=== PATIENT | male | born 1960 | race Hispanic/Latino ===

== ENCOUNTER → 2024-07-29 | Outpatient (CLI) | payer OTHER | END | disposition home or self-care (01) | LOC: RAH 12:09 | PROVIDERS: ATTEND Internal Medicine Cardiovascular Disease | DX: Z13.6 Encounter for screening for cardiovascular disorders (principal) | CPT/HCPCS: 75571 ==

== ENCOUNTER → 2024-08-26 | Outpatient (CLI) | payer OTHER ==
--- NOTE | 2024-08-27 09:37 | HMCSR ---
APPROVED REPORT Laterality: Bilateral Indications Skin Tanner use of Anticoag, Doppler Spectral Velocity Analysis PSV / EDVPSV / EDV ECA (R) 70 / cm/sECA (L) 75 / cm/s dICA (R) 85 / 36 cm/sdICA (L) 78 / 33 cm/s Berny (R) 61 / 19 cm/smICA (L) 71 / 23 cm/s pICA (R) 80 / 17 cm/spICA (L) 56 / 14 cm/s dCCA (R) 77 / 13 cm/sdCCA (L) 72 / 15 cm/s mCCA (R) 91 / 17 cm/smCCA (L) 87 / 27 cm/s pCCA (R) 78 / 16 cm/spCCA (L) 121 / 29 cm/s Vert (R) 20 / cm/sVert (L) 56 / cm/s Subl. (R) 115 / cm/sSubl. (L) 153 / cm/s ICA/CCA 0.93ICA/CCA 0.64 Technologist Impression Mild plaque noted in the bilateral carotids DREA and LICA appear patent without hemodynamic significance. RT. Vert A. appears small difficult to evaluate Bilateral vertebral arteries appear antegrade. Conclusion Mild plaque noted in the bilateral carotids DREA and LICA appear patent without hemodynamic significance. RT. Vert A. appears small difficult to evaluate Bilateral vertebral arteries appear antegrade. Conclusion Mild plaque noted in the bilateral carotids DREA and LICA appear patent without hemodynamic significance. RT. Vert A. appears small difficult to evaluate Bilateral vertebral arteries appear antegrade.
== END | disposition home or self-care (01) ==
LOC: SHCH 11:01 → EDUNIT# 15:40
PROVIDERS: ATTEND Internal Medicine Cardiovascular Disease
DX: I65.23 Occlusion and stenosis of bilateral carotid arteries (principal); Z79.01 Long term (current) use of anticoagulants
CPT/HCPCS: 93880

== ENCOUNTER 2024-10-10 05:49 | Day surgery (SDC) | payer OTHER ==
[2024-10-08 11:19] VITALS: BP 124/73; PULSE 94; RESP 18; TEMP 97.3
[2024-10-08 11:24] LABS: BASOPHILS # (AUTO) 0.03 K/uL (0.00-0.20); BASOPHILS % (AUTO) 0.5 % (0.0-5.0); EOSINOPHILS # (AUTO) 0.14 K/uL (0.00-0.70); EOSINOPHILS % (AUTO) 2.1 % (0.0-8.0); HEMATOCRIT 41.7 % (42-54); IMMATURE GRANULOCYTE ABSOLUTE 0.03 K/uL (0-1); LYMPHOCYTES # (AUTO) 1.7 K/uL (1.0-4.8); LYMPHOCYTES % (AUTO) 25.4 % (21.0-51.0); MEAN CORPUSCULAR HEMOGLOBIN 30.8 pg (27.0-33.0); MEAN CORPUSCULAR HGB CONC 34.3 g/dL (32.0-36.0); MEAN CORPUSCULAR VOLUME 89.7 fL (79-99); MONOCYTES # (AUTO) 0.4 K/uL (0.1-1.0); MONOCYTES % (AUTO) 6.4 % (3.0-13.0); NEUTROPHILS # (AUTO) 4.3 K/uL (1.8-7.7); NEUTROPHILS % (AUTO) 65.1 % (40.0-77.0); PLATELET COUNT (AUTO) 159 K/uL (130-400); RED BLOOD CELL COUNT(AUTO) 4.65 MIL/uL (4.50-6.20); RED CELL DISTRIBUTION WIDTH 12.8 % (11.0-15.5); WHITE BLOOD COUNT (AUTO) 6.5 K/uL (4.8-10.8)
[2024-10-08 11:31] LABS: POTASSIUM 4.2 mmol/L (3.5-5.1)
[2024-10-08 11:33] LABS: APPEARANCE,URINE CLEAR (CLEAR); BILIRUBIN,URINE NEGATIVE (NEGATIVE); COLOR,URINE YELLOW (YELLOW); GLUCOSE, URINE (UA) NEGATIVE (NEGATIVE); KETONES,URINE NEGATIVE (NEGATIVE); LEUKOCYTE ESTERASE ,URINE NEGATIVE Leu/uL (NEGATIVE); NITRATE,URINE NEGATIVE (NEGATIVE); OCCULT BLOOD,URINE NEGATIVE (NEGATIVE); PH,URINE 5.5 (5.0-8.0); PROTEIN,URINE NEGATIVE (NEGATIVE); UROBILINOGEN,URINE 0.2 mg/dL (0.2-1.0)
[2024-10-08 11:36] LABS: ADD UA MICROSCOPIC NO
[2024-10-08 11:45] LABS: INR 1.09 (0.85-1.15); PROTHROMBIN TIME 11.5 SEC (9.6-11.6)
[2024-10-08 11:46] LABS: PARTIAL THROMBOPLASTIN TIME 28.2 SEC (26.3-35.5)
[2024-10-08 11:52] LABS: B-TYPE NATRIURETIC PEPTIDE 62 pg/mL (0-100)
--- NOTE | 2024-10-08 17:17 | HMCIMG ---
CHEST 1VW HISTORY: Preop COMPARISON: None FINDINGS: A frontal projection of the chest was obtained. No acute pulmonary infiltrates is seen. The heart is borderline enlarged. Degenerative changes are seen. Aortic calcifications are seen. IMPRESSION: 1. No acute pulmonary infiltrate is seen.
[~2024-10-10] VITALS: Ht 172.7 cm; Wt 119.6 kg
[2024-10-10] VITALS (36 sets, daily range): BP systolic 105–157; BP diastolic 52–91; PULSE 77–109; RESP 8–18; TEMP 97–206.6
[~2024-10-10 05:49] MED LIST: APIX5TAB PO; ASPI-1443 PO; ATOR40TA69 PO; CHOL200013 PO; FINA5TAB41 PO; LACT1CAP70 PO; MELA10TA3 PO; MVIT PO; SILD25TA PO; TERA5CAP4 PO; TIRZ5VIA SQ; URSO300C4 PO
[2024-10-10] MEDS: LIDOCAINE HCL 2% VISCOUS 15 ML UDCUP ONE (07:45)
--- NOTE | 2024-10-10 07:55 | EKG ---
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
--- NOTE | 2024-10-10 08:50 | EKG ---
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
[2024-10-10] MEDS ORDERED: AMIOdarone 150MG VIAL IV ONE (09:00)
[2024-10-10] MEDS: 0.9%NACL 1000ML 1,000 ML IV SCH (09:16)
[2024-10-10] MEDS: MIDAZOLAM HCL 1 MG/ML 2ML VIAL ONE (09:17)
[2024-10-10] MEDS: proPOFol 10 MG/ML 20ML VIAL IV ONE (09:20)
[2024-10-10] MEDS: FENTanyl CITRate PF 50 MCG/1 ML 2ML VIAL ONE (09:22)
--- NOTE | 2024-10-10 11:46 | HMCSR ---
APPROVED REPORT EXAM: Transesophageal echocardiogram with color flow Doppler. INDICATION ICD: Coronary artery disease, I10 Reason For Test : Rule out Intracardiac Thrombus. PROCEDURE 15 mL 2% Viscous Lidocaine was given as a topical anesthetic prior to the administration of the consc ious sedation. Type of Sedation: Conscious Sedation Sedation was administered by please refer to medication adminsitration record. . Sedation was achieved with please refer to medication adminsitration record. intravenously. Transesophageal probe was inserted and advanced into esophagus without difficulty by Nnamdi Angulo Left Ventricle The left ventricle is normal size. There is mild left ventricular wall thickness. The LVEF is 55%. No left ventricle thrombus noted on this study. Right Ventricle The right ventricle is normal size. The right ventricular systolic function is normal. Atria The left atrium is severely dilated. There is no mass or thrombus suspected in the left atrium. No th rombus is visualized in the left atrium or appendage. Spontaneous contrast noted in left atrium. No e vidence of PFO/ASD by color doppler/agitated saline. The right atrium is severely dilated. There is no mass or thrombus seen in the right atrium. Aortic Valve Aortic valve is trileaflet and opens well. Mild aortic regurgitation. There is no aortic valvular johnathon nosis. Mitral Valve The mitral valve is normal in structure. There is trace of mitral valve regurgitation noted. There is no mitral valve stenosis. Tricuspid Valve The tricuspid valve is normal in structure. There is mild tricuspid valve regurgitation noted. Great Vessels The aortic root is normal in size. Ascending aorta appears normal in size. Descending aorta appears n ormal in size. Pericardium There is no pericardial effusion. Conclusion The left ventricle is normal size. There is mild left ventricular wall thickness. The LVEF is 55%. No left ventricle thrombus noted on this study. The right ventricle is normal size. The right atrium is severely dilated. There is no mass or thrombus seen in the right atrium. Spontaneous contrast noted in left atrium. No evidence of PFO/ASD by color doppler/agitated saline. Aortic valve is trileaflet and opens well. Mild aortic regurgitation. There is no aortic valvular stenosis. The mitral valve is normal in structure. There is trace of mitral valve regurgitation noted. There is no mitral valve stenosis. There is mild tricuspid valve regurgitation noted. The aortic root is normal in size. Ascending aorta appears normal in size. Descending aorta appears normal in size. There is no pericardial effusion.
[2024-10-10] MEDS ORDERED: IOHEXOL 350 MG/ML 100ML INFUS..BTL IV ONE (12:41)
[2024-10-10] MEDS ORDERED: LIDOCAINE HCL 400MG/20ML VIAL ONE (12:41)
[2024-10-10] MEDS ORDERED: SODIUM BICARB 50MEQ 50ML VIAL 50 ML ONE (12:41)
[2024-10-10] MEDS ORDERED: HEParin 10,000 UNIT/10ML (1,000 UNIT/ML) VIAL ONE (12:41)
[2024-10-10] MEDS ORDERED: HEParin-NS 1,000 UNIT/500 ML 1,000 ML IV ONE (12:41)
[2024-10-10] MEDS ORDERED: NITROGLYCERIN 50MG VIAL ONE (12:42)
[2024-10-10] MEDS ORDERED: niCARDIpine 25MG INJ IV ONE (12:47)
[2024-10-10] MEDS ORDERED: MIDAZOLAM HCL 1 MG/ML 2ML VIAL ONE ×5 (12:57→14:06)
[2024-10-10] MEDS ORDERED: FENTanyl CITRate PF 50 MCG/1 ML 2ML VIAL ONE ×2 (12:57→14:05)
[2024-10-10] MEDS ORDERED: metoPROLOL tartRATE 1 MG/ML 5ML VIAL IV ONE (13:29)
[2024-10-10] MEDS ORDERED: ASPIRIN 325MG EC TAB PO ONE (14:45)
[2024-10-10] MEDS ORDERED: cloPIDOgrel 300MG TAB ONE (14:45)
[2024-10-10] MEDS ORDERED: 0.9%NACL 1000ML 1,000 ML IV SCH (15:00)
--- NOTE | 2024-10-10 15:20 | NUR ---
UPON ARRIVAL VASC BAND TO RIGHT WRIST DRAINAGE OF BLOOD CIRCLED. RADIAL PULSES PRESENT, SOFT TO TOUCH , AND NO ACTIVE BLEEDING OR OOZING NOTED. NO REDNESS OR SELLING NOTED. RECEIVED VERBAL REPORT FROM TAMIKA NOLASCO AT [facility].
--- NOTE | 2024-10-10 15:44 | PR ---
PROCEDURE NOTE PROCEDURES: * Selective right and left coronary arteriogram. * Balloon angioplasty and stent placement in the diagonal. * Balloon angioplasty and stent placement in the LAD x 2. * Conscious sedation for 90 minutes. INDICATIONS: * Ischemic cardiomyopathy. * Abnormal Lexiscan Cardiolite. * Paroxysmal atrial fibrillation, status post DC cardioversion. COMPLICATIONS: None. TOTAL CONTRAST: 130 mL. APPROACH: A note is to be made. This patient was done via a right radial approach. We had poor guide support. Moreover, the patient had a fairly uncooperative attitude throughout the entire procedure. He was not able to lay still despite large doses of narcotics and anxiolytics. DESCRIPTION OF PROCEDURE: The patient was taken to the cardiac freezer laboratory technician. Operative consent was sent. He was prepped and draped in the usual fashion. After conscious sedation was administered, the right radial artery region was infiltrated with 2% Xylocaine without epinephrine. A 6-Palestinian tender sheath was then advanced in retrograde fashion by a modified Seldinger technique. A TIG 4 catheter was advanced over an indwelling wire and selectively engaged in the ostium of the right coronary artery. Catheter dampening ensued. The right coronary artery was a small vessel that had 99-100% occlusion in its proximal portion. It gave us a small acute marginal and a small PDA. The right coronary artery was co-dominant. The TIG 4 was selectively engaged in the circumflex coronary artery. There was no left main LAD and the circumflex had separate ostia. The circumflex was a co-dominant vessel that was large, giving us several marginal branches and ongoing circ. The first marginal was a moderately sized vessel that had a 40% stenotic lesion. The second marginal was a branching vessel that was free of significant stenosis. The ongoing circ had a 40% lesion in its mid to distal portion after the second obtuse marginal. There was a third obtuse marginal that was normal. The PLVB had an 80% stenotic lesion. The catheter was then withdrawn and we were able to engage in the left anterior descending coronary artery with an FL 3.5. This was a diagnostic catheter. The LAD was moderately sized. It was calcified in its proximal portion and gave rise to a very large first diagonal that was actually larger than the LAD. The ongoing LAD had a long segment of critical stenosis that is 95% just distal to the first diagonal. Given the marked abnormalities of the Cardiolite and the critical lesions identified, my plan was to proceed with either revascularization of all the vessels or staging the procedure. We were finally able to engage the LAD with an FL3 guide. A 0.014 wire was positioned to distal diagonal. Attempts at advancing stent in the diagonal were not successful because of poor guide support. At this point, we utilized the GuideLiner and despite the GuideLiner being advanced all the way to the diagonal, we were still not able to advance the stent. Because of that, I elected to proceed with a 2.5 NC balloon that was placed in the area of stenosis that was 95%. This was then inflated to nominal pressures. This allowed us to advance 2.5 x 26 [place] stent, which was deployed to nominal pressures with good angiographic results. At this point, the LAD was wired and once again, attempts at advancing a balloon and a stent were not successful. The GuideLiner was then advanced into the LAD and a 2.5 NC balloon was utilized and advanced the area of stenosis and inflated to nominal pressures. At this point, we were able to advance the stent through the GuideLiner. We utilized a 2.5 x 34 [place], which was placed in the mid segment of the LAD. This was inflated with nominal pressures. An overlapping 2.5 x 15 [place] stent was placed just proximal to that stent all the way to the origin of the first diagonal. This was inflated to nominal pressures. At this point, final angiographic results revealed good opposition of the stents with brisk flow and no evidence of compromised vessels. The procedure was completed, the radial sheath was removed with a radial band. The patient tolerated the procedure well, left the cardiac cath left in stable condition. FINAL IMPRESSION: * Severe 3-vessel coronary artery disease. * Successful complex procedure involving stenting of the large diagonal 1 and mid LAD with 2.5 x 26 [place] in the diagonal 1 and 2.5 x 34 and an overlapping 2.5 x 15 drug-eluting stents in the mid LAD with good angiographic results. PLAN: We will continue to optimize medical management. Any attempt at revascularizing the circ and the RCA will likely be done with anesthesia assistance given the patient's fairly uncooperative state and inability to lie flat, which made this procedure that much more complicated. TID: [id number] RECEIPT: [id number]
--- NOTE | 2024-10-10 18:00 | NUR ---
VASC BAND REMOVED VASC BAND REMOVED FROM RIGHT RADIAL. ALL 10MLS OF AIR REMOVED PRIOR. WAITED 15 MINUTES AFTER LAST AIR TAKEN OUT TO REMOVE VAS BAND. USING CLEAN/STERILE TECHNIQUE. FIRST REMOVED THE VASC BAND FOLLOWED BY CLEANING RADIAL SITE WITH CHLORAPREP. 2X2 GAUZE STERILE GAUZE APPLIED TO SITE. STERILE TEGADERM PLACED ON TOP OF STERILE 2X2 GAUZE AND FOLLOWED BY COBAN SECURED IN PLACE OF TEGADERM. NO ACTIVE BLEEDING NOTED OR OOZING. NO REDNESS OR SWELLING NOTED. PULSES PRESENT.
== END 2024-10-10 18:58 | disposition home or self-care (01) ==
LOC: DAH 05:49 → EDSTATUS 10:00 → DAH 18:58
PROVIDERS: ATTEND Internal Medicine Cardiovascular Disease
DX: R94.39 Abnormal result of other cardiovascular function study (principal); I25.10 Atherosclerotic heart disease of native coronary artery without angina pectoris; I25.84 Coronary atherosclerosis due to calcified coronary lesion; I48.19 Other persistent atrial fibrillation; E78.5 Hyperlipidemia, unspecified; I42.9 Cardiomyopathy, unspecified; I10 Essential (primary) hypertension; I25.5 Ischemic cardiomyopathy; I48.0 Paroxysmal atrial fibrillation; M19.90 Unspecified osteoarthritis, unspecified site; R07.9 Chest pain, unspecified; R06.02 Shortness of breath; I08.3 Combined rheumatic disorders of mitral, aortic and tricuspid valves; E66.9 Obesity, unspecified; Z68.41 Body mass index [BMI] 40.0-44.9, adult; Z79.899 Other long term (current) drug therapy; Z79.01 Long term (current) use of anticoagulants; Z79.82 Long term (current) use of aspirin; Z98.890 Other specified postprocedural states; Z83.3 Family history of diabetes mellitus; Z82.49 Family history of ischemic heart disease and other diseases of the circulatory system; Z84.89 Family history of other specified conditions; Z88.8 Allergy status to other drugs, medicaments and biological substances
CPT/HCPCS: 80048; 83880; 85025; 85610; 85730; 81003; 36415; 71045; 93454; 85347; 93325; 93005 ×2; C9600; C1769 ×3; C1887 ×3; C1874 ×3; A4649; C1894; Q9965 ×2; C1725 ×2; J3010 ×3; J3490 ×5; J1644 ×2; J2250 ×6; J7060 ×2; J2704; J0282 ×2; Q9967; C8925; A4615; A4215; A4222; A4221; A4663; A4216; A4606; C9601; A4223 ×3; 93312; 93452; 99152; 99153; 99156; 99157; G0500

== ENCOUNTER → 2024-11-20 | Outpatient (CLI) | payer OTHER ==
[~2024-11-20] VITALS: Ht 172.7 cm; Wt 120.6 kg
[~2024-11-20] MED LIST changes: +AMIO200T73 PO; -ASPI-1443 PO; +CARB-182 OU; +CARB15DR OU; +CLOP75TA32 PO; +MELA5CAP PO; +MILK500C PO; +OMEG100033 PO
[2024-11-20 13:16] LABS: BASOPHILS # (AUTO) 0.02 K/uL (0.00-0.20); BASOPHILS % (AUTO) 0.3 % (0.0-5.0); EOSINOPHILS # (AUTO) 0.11 K/uL (0.00-0.70); EOSINOPHILS % (AUTO) 1.8 % (0.0-8.0); HEMATOCRIT 38.8 % (42-54); IMMATURE GRANULOCYTE ABSOLUTE 0.01 K/uL (0-1); LYMPHOCYTES # (AUTO) 1.2 K/uL (1.0-4.8); LYMPHOCYTES % (AUTO) 20.2 % (21.0-51.0); MEAN CORPUSCULAR HEMOGLOBIN 30.8 pg (27.0-33.0); MEAN CORPUSCULAR HGB CONC 35.1 g/dL (32.0-36.0); MONOCYTES # (AUTO) 0.4 K/uL (0.1-1.0); MONOCYTES % (AUTO) 6.7 % (3.0-13.0); NEUTROPHILS # (AUTO) 4.3 K/uL (1.8-7.7); NEUTROPHILS % (AUTO) 70.8 % (40.0-77.0); PLATELET COUNT (AUTO) 143 K/uL (130-400); RED BLOOD CELL COUNT(AUTO) 4.41 MIL/uL (4.50-6.20); RED CELL DISTRIBUTION WIDTH 12.8 % (11.0-15.5); WHITE BLOOD COUNT (AUTO) 6.1 K/uL (4.8-10.8)
[2024-11-20 13:26] LABS: CREATININE 0.9 mg/dL (0.5-1.3); POTASSIUM 4.5 mmol/L (3.5-5.1)
[2024-11-20 13:28] LABS: INR 1.13 (0.85-1.15); PROTHROMBIN TIME 11.8 SEC (9.6-11.6)
[2024-11-20 13:29] LABS: PARTIAL THROMBOPLASTIN TIME 28.1 SEC (26.3-35.5)
[2024-11-20 14:03] LABS: B-TYPE NATRIURETIC PEPTIDE 44 pg/mL (0-100)
[2024-11-20 14:17] VITALS: BP 127/72; PULSE 90; RESP 17; TEMP 97.6
--- NOTE | 2024-11-20 14:23 | HMCIMG ---
Exam Type: CHEST 1VW Clinical Information: PREOP Comparison: None Findings: The lungs are clear of infiltrates. The heart is normal in size. The bony and soft tissue structures of the chest are unremarkable. Impression: Clear lungs.
--- NOTE | 2024-11-20 14:50 | NUR ---
RE: ELIQUIS INFORMED RANDA RICH NP THAT PATIENT TOOK HIS ELIQUIS THIS MORNING AT 3AM AND REPORTED PT/INR RESULTS. PATIENT STATES THAT NO ONE INSTRUCTED HIM TO STOP TAKING HIS ELIQUIS. PER RANDA, PROCEDURE WILL NEED TO BE RESCHEDULED. SCHEDULING (LUANNEA) NOTIFIED OR SCHEDULING (ADAMARIS) NOTIFIED I&C TECH (ELEAZAR/QUINCY) NOTIFIED PATIENT WAS CALLED AND NOTIFIED
--- NOTE | 2024-11-20 14:59 | EKG ---
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
== END | disposition home or self-care (01) ==
LOC: LAB 12:35 → EDSTATUS 11-21 08:00
PROVIDERS: ATTEND Internal Medicine Cardiovascular Disease
DX: Z01.818 Encounter for other preprocedural examination (principal); I25.10 Atherosclerotic heart disease of native coronary artery without angina pectoris; I48.91 Unspecified atrial fibrillation; R94.31 Abnormal electrocardiogram [ECG] [EKG]; R00.2 Palpitations
CPT/HCPCS: 36415; 71045; 80048; 83880; 85025; 85610; 85730; 93005

== ENCOUNTER 2024-12-22 05:34 | Day surgery (SDC) | payer OTHER ==
[2024-12-18 10:43] LABS: IMMATURE GRANULOCYTE ABSOLUTE 0.01 K/uL (0-1); NUCLEATED RED BLOOD CELLS 0.0 % (0.0-0.19); PLATELET COUNT (AUTO) 141 K/uL (130-400); RED BLOOD CELL COUNT(AUTO) 4.60 MIL/uL (4.50-6.20); RED CELL DISTRIBUTION WIDTH 12.3 % (11.0-15.5); WHITE BLOOD COUNT (AUTO) 5.6 K/uL (4.8-10.8)
[2024-12-18 10:45] LABS: APPEARANCE,URINE CLEAR (CLEAR); GLUCOSE, URINE (UA) NEGATIVE (NEGATIVE); LEUKOCYTE ESTERASE ,URINE NEGATIVE Leu/uL (NEGATIVE); NITRATE,URINE NEGATIVE (NEGATIVE); OCCULT BLOOD,URINE NEGATIVE (NEGATIVE)
[2024-12-18 10:51] LABS: INR 1.15 (0.85-1.15)
[2024-12-18 10:53] VITALS: BP 118/58; PULSE 77; RESP 18; TEMP 97.2
[2024-12-18 10:54] LABS: CREATININE 1.0 mg/dL (0.5-1.3); GLOMERULAR FILTR. RATE CALC 83.0 mL/min (>90); GLUCOSE,RANDOM 84.0 mg/dL (70-105); SODIUM SERUM 142.0 mmol/L (136-145); UREA NITROGEN, BLOOD 16.0 mg/dL (7-18)
[2024-12-18 10:55] LABS: ADD UA MICROSCOPIC NO
--- NOTE | 2024-12-18 11:45 | HMCIMG ---
EXAM: CR Chest, 1 View. CLINICAL HISTORY: PRE OP COMPARISON: Radiograph dated November 20, 2024 FINDINGS: LUNGS: There is no mass, infiltrate, or acute pulmonary abnormality. PLEURAL SPACES: No pleural effusion or pneumothorax. MEDIASTINUM: The cardiomediastinal silhouette is within normal limits. Atherosclerotic vascular calcifications are noted. BONES: No aggressive appearing osseous lesion seen. IMPRESSION: 1. No acute cardiopulmonary findings. /[place]
--- NOTE | 2024-12-18 12:11 | EKG ---
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
[~2024-12-22] VITALS: Ht 172.7 cm; Wt 119.2 kg
[2024-12-22] VITALS (21 sets, daily range): BP systolic 93–139; BP diastolic 61–86; PULSE 70–106; RESP 13–20; TEMP 97.1–97.9
[~2024-12-22 05:34] MED LIST changes: -AMIO200T73 PO; -CARB-182 OU; -MELA10TA3 PO; -SILD25TA PO; -TIRZ5VIA SQ
[2024-12-22] MEDS ORDERED: MIDAZOLAM HCL 1 MG/ML 2ML VIAL ONE (06:37)
[2024-12-22] MEDS: 0.9%NACL 1000ML 1,000 ML IV ONE (07:00)
[2024-12-22] MEDS ORDERED: TIRZ15PE SQ (07:12)
[2024-12-22] MEDS ORDERED: HEParin-NS 1,000 UNIT/500 ML 1,000 ML IV ONE (07:18)
[2024-12-22] MEDS ORDERED: LIDOCAINE HCL 400MG/20ML VIAL ONE (07:18)
[2024-12-22] MEDS ORDERED: IOHEXOL 350 MG/ML 100ML INFUS..BTL IV ONE (07:18)
[2024-12-22] MEDS ORDERED: SODIUM BICARB 50MEQ 50ML VIAL 50 ML ONE (07:18)
[2024-12-22] MEDS ORDERED: NITROGLYCERIN 50MG VIAL ONE (07:19)
[2024-12-22] MEDS ORDERED: NEOSTIGMINE METHYLSULFATE 1MG/ML IV ONE (08:48)
[2024-12-22] MEDS ORDERED: GLYCOPYRROLATE 0.2 MG/ML 5 ML VIAL ONE (08:51)
[2024-12-22] MEDS ORDERED: GLUCAGON 1MG KIT 1 MG ML IM PRN (09:00)
[2024-12-22] MEDS ORDERED: DEXTROSE 50%-WATER 50 ML DISP.SYRIN IV PRN (09:00)
[2024-12-22] MEDS ORDERED: ASPIRIN 81MG CHEW TAB ONE (09:04)
--- NOTE | 2024-12-22 09:51 | CCATH ---
PROCEDURES: * Selective right and left coronary arteriography. * Balloon angioplasty and stent placement in the distal circumflex. * Balloon angioplasty and stent placement in the proximal RCA. INDICATIONS: * Severe coronary artery disease. * Staged procedure. * Status post angioplasty and stenting of the LAD and the diagonal 1 in 10/2024. COMPLICATIONS: None. APPROACH: Right femoral approach. ANESTHESIA: General anesthesia with endotracheal intubation. TOTAL CONTRAST: 130 mL. DESCRIPTION OF PROCEDURE: The patient was taken to the cardiac catheterization lab after the appropriate operative consents were signed. During his prior procedure, the patient was unable to stay still during the procedure and that made the management quite challenging because of the patient's inability to lie still and was felt to be a high risk for any intervention without anesthesia. The patient was intubated and mechanically ventilated and the procedure was started. The right common femoral artery access was obtained. A 6-Sierra Leonean sheath was advanced in retrograde fashion by the modified Seldinger technique. We utilized an FL3.5 diagnostic catheter, which was selectively engaged to the ostium of the LAD. The patient did not have a left main and had 2 separate ostia. The LAD was patent. There was a stent in the segment just distal to the first diagonal and another stent just distal to that overlapping, which were widely patent. The diagonal one was a moderately large vessel and also had a widely patent stent. At this point, an FL4 6-Sierra Leonean guide was selected and engaged in the ostium of the circumflex. This was imaged in multiplane. This was a large vessel that gave rise to several marginal branches. First marginal branch had a 30% lesion, the second marginal branch was a branching vessel without disease, and a third marginal branch was free of disease. The distal circumflex had a long segment of 80% stenosis before a moderately sized posterior left ventricular branch. The patient had a codominant system. At this point, we were able to advance a 0.014 wire in the distal PLVB after full heparinization. We were able to advance a 2.5 x 34 mm [place], which was inflated to 14 atmospheres at the site of the distal lesion with good angiographic results. At this point, an FR4 6-Sierra Leonean with sideholes was selected for assessment of the right coronary artery which had been documented to have critical stenosis by the prior study. The right coronary artery was imaged in multiplane identifying a critical 99%-100% stenotic lesion in the proximal RCA with a very underperfused RCA. We were able to advance a 0.014 wire, and with some difficulty, we were able to advance a 2.0 NC balloon, which was placed in the proximal portion and inflated to 16 atmospheres. This was followed by advancement of a 2.25 x 30 [place] stent, which was positioned to cover the proximal segment of the RCA. This was inflated to 12 atmospheres with very good angiographic results. At this point, the procedure was completed, Perclose was utilized with good hemostasis. The patient tolerated the procedure well and left the cardiac catheterization lab in stable condition. The patient was extubated prior to the departure. Of note is that this patient is on Eliquis and Plavix. Aspirin has not been given because of that. I, however, loaded him up with 325 mg of aspirin intraprocedural. PLAN: Medical management. TID: [id number] RECEIPT: [id number]
--- NOTE | 2024-12-22 12:00 | NUR ---
URINARY: VOIDED 175CC DARK YELLOW URINE PER URINAL WITHOUT DIFFICULTY
--- NOTE | 2024-12-22 14:00 | NUR ---
URINARY: VOIDED 150CC DARK YELLOW COLOR URINE PER URINAL WITHOUT DIFFICULTY.
== END 2024-12-22 14:25 | disposition home or self-care (01) ==
LOC: DAH 05:34 → ENDO 05:34
PROVIDERS: ATTEND Internal Medicine Cardiovascular Disease
DX: R94.39 Abnormal result of other cardiovascular function study (principal); I25.118 Atherosclerotic heart disease of native coronary artery with other forms of angina pectoris; R00.2 Palpitations; I50.22 Chronic systolic (congestive) heart failure; I48.91 Unspecified atrial fibrillation; G62.9 Polyneuropathy, unspecified; Z98.890 Other specified postprocedural states; Z87.891 Personal history of nicotine dependence; Z88.8 Allergy status to other drugs, medicaments and biological substances; Z79.01 Long term (current) use of anticoagulants; Z79.899 Other long term (current) drug therapy
CPT/HCPCS: 80048; 83880; 85025; 85610; 85730; 81003; 36415; 71045; 93005; 85347 ×2; 82948 ×2; 93454; C9600 ×2; C1769; C1887 ×2; C1894; C1874 ×2; C1760; C1725; J3010 ×2; J3490 ×8; J7030; J1644 ×2; J2250; J2704; J2405; J2710; J2371 ×2; Q9967; A4215; A4222; A4221; A4663; A4216; A4606; Q9965 ×2; A4223 ×3

== ENCOUNTER → 2025-02-25 | Outpatient (CLI) | payer OTHER ==
[~2025-02-25] MED LIST changes: +TIRZ15PE SQ
--- NOTE | 2025-02-25 19:20 | HMCIMG ---
EXAM: US Duplex Right Lower Extremity Veins. CLINICAL HISTORY: 64 year old male with abnormal immunological finding. TECHNIQUE: Real-time ultrasound scan of the veins of the right lower extremity with color Doppler flow, spectral waveform analysis and compression. COMPARISON: None provided. FINDINGS: DEEP VEINS: The common femoral, femoral, and popliteal veins are echolucent and compressible. These vessels demonstrate respiratory variation and augmentation. There is normal color Doppler flow throughout. The visualized calf veins are also patent. SUPERFICIAL VEINS: The visualized greater saphenous vein is patent. SOFT TISSUES: No popliteal fossa cyst or other abnormalities. IMPRESSION: 1. No deep venous thrombosis in the right lower extremity. EXAM: US Duplex Left Lower Extremity Veins. CLINICAL HISTORY: 64 year old male with abnormal immunological finding. TECHNIQUE: Real-time ultrasound scan of the veins of the left lower extremity with color Doppler flow, spectral waveform analysis and compression. COMPARISON: None provided. FINDINGS: DEEP VEINS: The common femoral, femoral, and popliteal veins are echolucent and compressible. These vessels demonstrate respiratory variation and augmentation. There is normal color Doppler flow throughout. The visualized calf veins are also patent. SUPERFICIAL VEINS: The visualized greater saphenous vein is patent. SOFT TISSUES: No popliteal fossa cyst or other abnormalities. No evidence of any significant soft tissue findings. IMPRESSION: 1. No deep venous thrombosis in the left lower extremity. /[place]
== END | disposition home or self-care (01) ==
LOC: RAH 09:43
PROVIDERS: ATTEND Internal Medicine Cardiovascular Disease
DX: I76 Septic arterial embolism (principal); R60.0 Localized edema
CPT/HCPCS: 93970

== ENCOUNTER 2025-03-18 07:34 | Day surgery (SDC) | payer OTHER ==
[2025-03-16 13:16] LABS: IMMATURE GRANULOCYTE ABSOLUTE 0.02 K/uL (0-1); NUCLEATED RED BLOOD CELLS 0.0 % (0.0-0.19); PLATELET COUNT (AUTO) 146 K/uL (130-400); RED BLOOD CELL COUNT(AUTO) 4.37 MIL/uL (4.50-6.20); RED CELL DISTRIBUTION WIDTH 12.8 % (11.0-15.5); WHITE BLOOD COUNT (AUTO) 6.3 K/uL (4.8-10.8)
[2025-03-16 13:24] LABS: CREATININE 0.8 mg/dL (0.5-1.3); GLOMERULAR FILTR. RATE CALC 98.0 mL/min (>90); GLUCOSE,RANDOM 92.0 mg/dL (70-105); SODIUM SERUM 144.0 mmol/L (136-145); UREA NITROGEN, BLOOD 18.0 mg/dL (7-18)
[2025-03-16 13:37] VITALS: BP 127/65; PULSE 81; RESP 12; TEMP 98.2
[~2025-03-18] VITALS: Ht 172.7 cm; Wt 121.7 kg
[2025-03-18] VITALS (8 sets, daily range): BP systolic 124–154; BP diastolic 76–90; PULSE 74–84; RESP 13–15; TEMP 97.4
[~2025-03-18 07:34] MED LIST changes: +ASPI-1197 PO; -CARB15DR OU; -LACT1CAP70 PO; +METO25TA6 PO
[2025-03-18] MEDS ORDERED: ATROPINE 1MG SYG IVP ONE (10:07)
[2025-03-18] MEDS ORDERED: LIDOCAINE HCL 1% 20 ML VIAL ONE (10:14)
--- NOTE | 2025-03-18 10:19 | NUR ---
PT D/C CARDIOVERTED 200JOULES BY DR. LAWSON. VSS NAD
--- NOTE | 2025-03-18 10:24 | NUR ---
PT AWAKE SPEAKING WITH STAFF VSS NAD
--- NOTE | 2025-03-18 10:38 | EKG ---
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
--- NOTE | 2025-03-18 10:39 | EKG ---
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
--- NOTE | 2025-03-18 12:35 | PRN ---
Procedure Note Date of procedure: 03/18/2025 Diagnosis: Persistent atrial fibrillation Procedure: Cardioversion Physician: Cornelius Lawson MD The patient was brought to the day patient area in a fasting state. Anesthesia was provided by the anesthesia service. Cardioversion was performed with a synchronized shock at 200 joules resulting in sinus rhythm. The patient tolerated the procedure well. Final diagnosis: Persistent atrial fibrillation, status post successful cardi oversion Disposition: The patient will be discharged later today and will follow up with me in the office in approximately two weeks. CORNELIUS LAWSON MD Mar 18, 2025 12:35
== END 2025-03-18 11:35 | disposition home or self-care (01) ==
LOC: DAH 07:34
PROVIDERS: ATTEND Internal Medicine Cardiovascular Disease
DX: I48.19 Other persistent atrial fibrillation (principal); I25.10 Atherosclerotic heart disease of native coronary artery without angina pectoris; I10 Essential (primary) hypertension; E66.01 Morbid (severe) obesity due to excess calories; I73.9 Peripheral vascular disease, unspecified; Z87.891 Personal history of nicotine dependence; M81.0 Age-related osteoporosis without current pathological fracture; G47.33 Obstructive sleep apnea (adult) (pediatric); M19.90 Unspecified osteoarthritis, unspecified site; Z99.89 Dependence on other enabling machines and devices; Z98.890 Other specified postprocedural states; Z88.8 Allergy status to other drugs, medicaments and biological substances; Z79.82 Long term (current) use of aspirin; Z79.899 Other long term (current) drug therapy
CPT/HCPCS: 80048; 85025; 36415; 92960; 82948; 93005 ×2; J0461; J2704; A4620; A4215; A4222; A4221; A4663; A4216; A4606; A4223 ×3; J0169; J0360; J3490